=== PATIENT | female | born 1975 | race Caucasian/White ===

== ENCOUNTER 2023-08-06 15:02 | Emergency (ER) | payer OTHER, SELFPAY ==
[2023-08-06 15:06] VITALS: BP 160/90; PULSE 104; RESP 20; TEMP 36.6; O2SAT 98
[2023-08-06 15:29] LABS: Basophils # 0.1 10^3/uL (0.0-0.1); Basophils % 0.7 %; Eosinophils # 0.5 10^3/uL (0.0-0.8); Eosinophils % 4.5 %; Hematocrit 45.3 % (36-47); Lymphocytes # 1.5 10^3/uL (0.8-4.8); Lymphocytes % 14.3 %; Mean Corpuscular HGB Conc 32.5 g/dL (30-55); Mean Corpuscular Hemoglobin 27.8 pg (27-33); Mean Corpuscular Volume 85.6 fl (85-98); Mean Platelet Volume 8.4 fL (7.4-10.4); Monocytes # 0.5 10^3/uL (0.2-0.9); Monocytes % 4.8 %; Neutrophils # 8.09 10^3/uL (1.8-7.7); Neutrophils % 75.4 %; Nucleated Red Blood Cells % 0 %; Platelet Count 380 10^3/cmm (157-399); Red Blood Count 5.29 10^6/uL (3.85-5.65); Red Cell Distribution Width 13.7 % (12.1-15.1); White Blood Count 10.71 10^3/uL (3.29-11.43)
[2023-08-06 15:56] LABS: HCG, Serum Qual Negative (Negative)
[2023-08-06 16:00] LABS: Alanine Aminotransferase 12 U/L (0-33); Albumin Level 4.1 g/dL (3.5-5.2); Alkaline Phosphatase 88 U/L (35-105); Chloride 104 mmol/L (98-107); Potassium 4.4 mmol/L (3.5-5.1); Sodium 137 mmol/L (136-145)
[2023-08-06 16:07] LABS: Anion Gap 17.4 (5-19); Aspartate Amino Transferase 16 U/L (0-32); Blood Urea Nitrogen 17 mg/dL (6-20); Calcium 8.8 mg/dL (8.5-10.5); Carbon Dioxide 20 mmol/L (22-29); Globulin 3.8 g/dL (1.3-4.6); Glomerular Filtration Rate 48.4 mL/min (90-130); Glucose 85 mg/dL (65-115); Lipase 62 U/L (13-60); Osmolality Calculated 285 mOsm/kg (285-295); Total Bilirubin 0.2 mg/dL (0.15-1.2); Total Protein 7.9 g/dL (6.6-8.7)
[2023-08-06 16:08] LABS: Creatinine Clr Calc Pharmacy 55.3156
--- NOTE | 2023-08-06 16:35 | USR_ITS ---
PROCEDURE INFORMATION: Exam: US Abdomen, Limited; Right Upper Quadrant Exam date and time: 08/06/2023 4:30 PM Age: 48 years old Clinical indication: Abdominal pain; Generalized; Additional info: Ruq pain TECHNIQUE: Imaging protocol: Real time ultrasound of the abdomen with image documentation. Limited exam focused on the right upper quadrant. COMPARISON: No relevant prior studies available. FINDINGS: Liver: Normal. No masses. Gallbladder: Normal. No gallstones. There is no gallbladder wall thickening. Burden's sign reported negative. Biliary ducts: Normal. No stones. No dilation. Pancreas: Visualized pancreas is unremarkable. Right kidney: Normal. No mass. No hydronephrosis. US/US gall bladder [id number] IMPRESSION: No abnormal findings.
--- NOTE | 2023-08-06 16:37 | ED_ITS ---
Documented by User: MARYJANE Hook 08/06/23 18:12 HPI - Abdominal Pain 2 General: Chief Complaint: Abdominal Pain Stated Complaint: sent over by savannah tate pain Time Seen by Provider: 08/06/23 15:46 Source: patient Mode of arrival: ambulatory Limitations: no limitations History of Present Illness: Patient is a 48-year-old female with no significant past medical history who presents to the emergency department complaining of right upper quadrant abdominal pain onset 2 days. Patient states the pain started out of nowhere and is constantly gotten worse since onset. It is a sharp stabbing pain with no radiation or migration. She still has her gallbladder and appendix, denies any history of abdominal surgeries. She denies any changes in bowel habit. Her last bowel movement was yesterday and was normal. She denies any nausea vomiting, fever, blood in stool, diarrhea, or any other symptoms. She states that the pain is worse with movement and with taking a deep breath. The pain causes her to feel uncomfortable at all times, and she says nothing she has tried [id number] has worked. She has never had this pain before. Patient states that she took a hydrocodone for recent dental infection, and this also did not relieve her pain. MD elicited complaint: abdominal pain Pertinent past history: none Onset (ago): day(s) (2) Pain Consistency: constant Location: RUQ Severity: severe Quality: stabbing and sharp Radiation: none Migration to: no migration Exacerbating factors: movement and other (Deep breathing) Relieving factors: nothing Associated Symptoms: Reports no associated symptoms; Denies change in bowel habits, chills, constipation, diarrhea, dysuria, fever(s), hematochezia, hematemesis, melena, nausea and vomiting Related Data: Date of Last Menstrual Period: 08/06/23 Review of Systems 2 General: Reports: 10 or more systems reviewed and unremarkable except in HPI and below Const: Denies: fever(s), chills or fatigue Eyes: Denies: change in vision ENMT: Denies: throat pain, ear or mastoid pain or nasal discharge Card: Denies: chest pain, palpitations, swelling of feet/ankles or lightheadedness Resp: Denies: dyspnea, productive cough or wheezing GI: Reports: abdominal pain; Denies: nausea, vomiting, hematemesis, diarrhea, constipation, change in bowel habits, hematochezia or melena : Denies: flank pain, difficulty voiding, dysuria or urinary frequency Musc: Denies: neck pain, back pain or joint pain Skin/Breast: Denies: rash Neuro: Denies: headache(s), numbness in extremities or weakness in extremities [facility] ED 2 Female Reproductive History: Date of last menstrual period: 08/06/23 Physical Exam 2 Const: COMMON NORMALS: no acute distress, average body habitus, patient oriented x3, no limitations, healthy appearing, alert and well nourished G ENERAL APPEARANCE: cooperative and comfortable ORIENTATION/CONSCIOUSNESS: Yes awake HENMT: COMMON NORMALS: normocephalic, atraumatic, hearing grossly normal bilaterally, external ears normal, Normal external nose present, Normal nasal mucous membranes and turbinates present and moist oral mucous membranes HEAD & SCALP: normocephalic and atraumatic NOSE: Normal external nose present and Normal nasal mucous membranes and turbinates present EXTERNAL EAR: Yes external ears normal Eye: COMMON NORMALS: Equal, round and reactive pupils present, EOMs intact bilaterally, conjunctivae normal and normal visual rosales by confrontation C ONJUNCTIVA: Yes conjunctivae normal PUPIL: Yes Equal, round and reactive pupils present Neck/C-Spine: COMMON NORMALS: full ROM, supple, no meningeal signs and no JVD Resp: COMMON NORMALS: normal respiratory effort, No retractions, No use of accessory muscles and clear to auscultation bilaterally AUSCULTATION: clear to auscultation bilaterally, no crackles, no rales, no rhonchi and no wheezes Cardio: COMMON NORMALS: no JVD, regular rate, regular rhythm, S1 normal heart sound present, S2 normal heart sound present, No gallops present (Cardio), No clicks present (Cardio), No murmurs present (Cardio), No rub (Cardio) and Peripheral pulses 2+ throughout RATE: regular rate RHYTHM: regular rhythm HEART SOUNDS: S1 normal heart sound present and S2 normal heart sound present PERIPHERAL PULSES: Peripheral pulses 2+ throughout GI: COMMON NORMALS: Normal to inspection, nondistended, normoactive bowel sounds present, No hepatosplenomegaly present, no masses and no bruits I NSPECTION: Yes normal to inspection, No abdominal wall ecchymosis and No visible herniation AUSCULTATION: Yes normoactive bowel sounds PALPATION: Yes Tenderness to palpation present (GI) Details: RUQ (Moderate with TTP, negative Burden sign), Yes Guarding due to palpation present (GI) in the RUQ (Voluntary), No Rigid due to palpation and Yes No hepatosplenomegaly present RECTAL EXAM: deferred : COMMON NORMALS: Yes no CVA tenderness BLADDER/KIDNEY EXAM: Yes no CVA tenderness Back/Pelvis: COMMON NORMALS: no CVA tenderness Extremity: COMMON NORMALS: normal to inspection and full ROM Neuro: COMMON NORMALS: patient oriented x3, moves all extremities, no focal motor deficits and no sensory deficits noted SENSORIUM/ORIENTATION: Yes alert MENINGEAL SIGNS: Yes no meningeal signs Psych: COMMON NORMALS: mental status grossly normal, cooperative and speech normal SPEECH: Yes normal speech Skin: COMMON NORMALS: no rashes or lesions noted GENERAL SKIN EXAM: no rashes or lesions noted Course 2 Vital Signs: Vital signs: Vital Signs Temperature 98 F 08/06/23 15:06 Pulse Rate 104 H 08/06/23 15:06 Respiratory Rate 20 H 08/06/23 15:06 Blood Pressure 160/90 08/06/23 15:06 Pulse Oximetry 98 08/06/23 15:06 Oxygen Delivery Me thod Room Air 08/06/23 15:06 MDM - Abdominal Pain Medical Decision Making This patient is a 48-year-old female who was seen and evaluated in the emergency department today for 2 days of right upper quadrant pain. She denies any history of abdominal surgeries and still has her gallbladder and appendix. On examination, she exhibits moderate tenderness to palpation of the right upper quadrant with associated voluntary guarding. Otherwise rest of her exam was unremarkable. Her vitals have been unremarkable throughout her ED course. Laboratory examination overall is unremarkable including a negative white count or other signs of acute infection. Gallbladder ultrasound obtained failed to reveal any signs of cholelithiasis or cholecystitis. Patient will be given follow-up with general surgery for further evaluation. She will be treated with a prescription for dicyclomine for her pain, and Zofran for her nausea. The patient agrees with this plan. Patient discharged home. Lab Data 08/06/23 15:22 08/06/23 15:22 Labs/Radiology: Radiology Impressions Gallbladder Ultrasound 08/06/23 16:35 IMPRESSION: No abnormal findings. Laboratory Results WBC 10.71 10^3/uL (3.29-11.43) 08/06/23 15:22 RBC 5.29 10^6/uL (3.85-5.65) 08/06/23 15:22 Hgb 14.70 g/dL (11.27-16.99) 08/06/23 15:22 Hct 45.3 % (36-47) 08/06/23 15:22 MCV 85.6 fl (85-98) 08/06/23 15:22 MCH 27.8 pg (27-33) 08/06/23 15:22 MCHC 32.5 g/dL (30-55) 08/06/23 15:22 RDW 13.7 % (12.1-15.1) 08/06/23 15:22 Plt Count 380 10^3/cmm (157-399) 08/06/23 15:22 MPV 8.4 fL (7.4-10.4) 08/06/23 15:22 Neut % (Auto) 75.4 % 08/06/23 15:22 Lymph % (Auto) 14.3 % 08/06/23 15:22 [place] % (Auto) 4.8 % 08/06/23 15:22 Eos % (Auto) 4.5 % 08/06/23 15:22 Baso % (Auto) 0.7 % 08/06/23 15: Neut # (Auto) 8.09 10^3/uL (1.8-7.7) H 08/06/23 15:22 Lymph # (Auto) 1.5 10^3/uL (0.8-4.8) 08/06/23 15:22 [place] # (Auto) 0.5 10^3/uL (0.2-0.9) 08/06/23 15:22 Eos # (Auto) 0.5 10^3/uL (0.0-0.8) 08/06/23 15:22 Baso # (Auto) 0.1 10^3/uL (0.0-0.1) 08/06/23 15:22 Nucleated RBC % (auto) 0 % 08/06/23 15:22 Nucleated RBCs # 0.0 /100WBC 08/06/23 15:22 Sodium 137 mmol/L (136-145) 08/06/23 15:22 Potassium 4.4 mmol/L (3.5-5.1) 08/06/23 15:22 Chloride 104 mmol/L (98-107) 08/06/23 15:22 Carbon Dioxide 20 mmol/L (22-29) L 08/06/23 15:22 Anion Gap 17.4 (5-19) 08/06/23 15:22 BUN 17 mg/dL (6-20) 08/06/23 15:22 Creatinine 1.2 mg/dL (0.5-0.9) H 08/06/23 15:22 GFR Calculation 48.4 mL/min (90-130) L 08/06/23 15:22 Glucose 85 mg/dL (65-115) 08/06/23 15:22 Calculated Osmolality 285 mOsm/kg (285-295) 08/06/23 15:22 Calcium 8.8 mg/dL (8.5-10.5) 08/06/23 15:22 Total Bilirubin 0.2 mg/dL (0.15-1.2) 08/06/23 15:22 AST 16 U/L (0-32) 08/06/23 15:22 ALT 12 U/L (0-33) 08/06/23 15:22 Alkaline Phosphatase 88 U/L (35-105) 08/06/23 15:22 Total Protein 7.9 g/dL (6.6-8.7) 08/06/23 15:22 Albumin 4.1 g/dL (3.5-5.2) 08/06/23 15:22 Globulin 3.8 g/dL (1.3-4.6) 08/06/23 15:22 Lipase 62 U/L (13-60) H 08/06/23 15:22 HCG, Qual Negative (Negative) 08/06/23 15:22 Urine Color Yellow (Yellow) 08/06/23 17:36 Urine Appearance Hazy (CLEAR) A 08/06/23 17:36 Urine pH 5 (5-7) 08/06/23 17:36 Ur Specific [place] 1.020 (1.005-1.030) 08/06/23 17:36 Urine Protein 2+ (Negative) H 08/06/23 17:36 Urine Glucose (UA) Norm (Normal) 08/06/23 17:36 Urine Ketones Negative (Negative) 08/06/23 17:36 Urine Blood 3+ (Negative) H 08/06/23 17:36 Urine Nitrate Negative (Negative) 08/06/23 17:36 Urine Bilirubin Neg (Negative) 08/06/23 17:36 Urine Urobilinogen Norm mg/dL (Negative) 08/06/23 17:36 Ur Leukocyte Esterase Negative (Negative) 08/06/23 17:36 Urine RBC 25-40 /hpf (0-2) H 08/06/23 17:36 Urine WBC None /hpf (0-5) 08/06/23 17:36 Ur Squamous Epith Cells 0-4 /hpf (0-5) H 08/06/23 17:36 Amorphous Sediment Not Reportable 08/06/23 17:36 Urine Bacteria Trace /hpf (NONE) 08/06/23 17:36 All radiology interpretation(s) finalized by discharge Discharge Plan Discharge Patient Disposition: Home Clinical Impression: Right upper quadrant abdominal pain Condition: Stable Prescriptions: New dicyclomine 10 mg capsule 10 mg PO QID PRN (Reason: abdominal pain) Qty: 30 0RF ondansetron HCl 4 mg tablet 4 mg PO Q8H Qty: 30 0RF Discharge Orders: Discharge ED (Routine); Ordered 08/06/23 Ordered By: Sameer Edwards Discharge Diet: Usual diet Discharge Activity: Increase activity as tolerated Patient Instructions: Abdominal Pain (ED) Activity Restrictions/Additional Instructions: Dicyclomine as prescribed. Zofran as needed. Follow-up with general surgery as instructed. Return if you develop any new or worsening symptoms. Coding Level of Care Code ED Product Representative for Chg Fwd Documented by User: Reilly Hull DO 08/07/23 06:10 HPI - Abdominal Pain 2 General: Chief Complaint: Abdominal Pain Stated Complaint: sent over by savannah tate pain Time Seen by Provider: 08/06/23 15:46 Course 2 Vital Signs: Vital signs: Vital Signs Temperature 98 F 08/06/23 15:06 Pulse Rate 104 H 08/06/23 15:06 Respiratory Rate 20 H 08/06/23 15:06 Blood Pressure 160/90 08/06/23 15:06 Pulse Oximetry 98 08/06/23 15:06 Oxygen Delivery Me thod Room Air 08/06/23 15:06 MDM - Abdominal Pain Medical Decision Making This patient is a 48-year-old female who was seen and evaluated in the emergency department today for 2 days of right upper quadrant pain. She denies any history of abdominal surgeries and still has her gallbladder and appendix. On examination, she exhibits moderate tenderness to palpation of the right upper quadrant with associated voluntary guarding. Otherwise rest of her exam was unremarkable. Her vitals have been unremarkable throughout her ED course. Laboratory examination overall is unremarkable including a negative white count or other signs of acute infection. Gallbladder ultrasound obtained failed to reveal any signs of cholelithiasis or cholecystitis. Patient will be given follow-up with general surgery for further evaluation. She will be treated with a prescription for dicyclomine for her pain, and Zofran for her nausea. The patient agrees with this plan. Patient discharged home. Chart reviewed and patient discussed with midlevel. Agree with assessment and plan. Lab Data 08/06/23 15:22 08/06/23 15:22 Labs/Radiology: Radiology Impressions Gallbladder Ultrasound 08/06/23 16:35 IMPRESSION: No abnormal findings. Laboratory Results WBC 10.71 10^3/uL (3.29-11.43) 08/06/23 15:22 RBC 5.29 10^6/uL (3.85-5.65) 08/06/23 15:22 Hgb 14.70 g/dL (11.27-16.99) 08/06/23 15:22 Hct 45.3 % (36-47) 08/06/23 15:22 MCV 85.6 fl (85-98) 08/06/23 15:22 MCH 27.8 pg (27-33) 08/06/23 15:22 MCHC 32.5 g/dL (30-55) 08/06/23 15:22 RDW 13.7 % (12.1-15.1) 08/06/23 15:22 Plt Count 380 10^3/cmm (157-399) 08/06/23 15:22 MPV 8.4 fL (7.4-10.4) 08/06/23 15:22 Neut % (Auto) 75.4 % 08/06/23 15:22 Lymph % (Auto) 14.3 % 08/06/23 15:22 [place] % (Auto) 4.8 % 08/06/23 15:22 Eos % (Auto) 4.5 % 08/06/23 15:22 Baso % (Auto) 0.7 % 08/06/23 15:22 Neut # (Auto) 8.09 10^3/uL (1.8-7.7) H 08/06/23 15:22 Lymph # (Auto) 1.5 10^3/uL (0.8-4.8) 08/06/23 15:22 [place] # (Auto) 0.5 10^3/uL (0.2-0.9) 08/06/23 15:22 Eos # (Auto) 0.5 10^3/uL (0.0-0.8) 08/06/23 15:22 Baso # (Auto) 0.1 10^3/uL (0.0-0.1) 08/06/23 15:22 Nucleated RBC % (auto) 0 % 08/06/23 15: Nucleated RBCs # 0.0 /100WBC 08/06/23 15:22 Sodium 137 mmol/L (136-145) 08/06/23 15:22 Potassium 4.4 mmol/L (3.5-5.1) 08/06/23 15:22 Chloride 104 mmol/L (98-107) 08/06/23 15:22 Carbon Dioxide 20 mmol/L (22-29) L 08/06/23 15:22 Anion Gap 17.4 (5-19) 08/06/23 15:22 BUN 17 mg/dL (6-20) 08/06/23 15:22 Creatinine 1.2 mg/dL (0.5-0.9) H 08/06/23 15:22 GFR Calculation 48.4 mL/min (90-130) L 08/06/23 15:22 Glucose 85 mg/dL (65-115) 08/06/23 15:22 Calculated Osmolality 285 mOsm/kg (285-295) 08/06/23 15:22 Calcium 8.8 mg/dL (8.5-10.5) 08/06/23 15:22 Total Bilirubin 0.2 mg/dL (0.15-1.2) 08/06/23 15:22 AST 16 U/L (0-32) 08/06/23 15:22 ALT 12 U/L (0-33) 08/06/23 15:22 Alkaline Phosphatase 88 U/L (35-105) 08/06/23 15:22 Total Protein 7.9 g/dL (6.6-8.7) 08/06/23 15:22 Albumin 4.1 g/dL (3.5-5.2) 08/06/23 15:22 Globulin 3.8 g/dL (1.3-4.6) 08/06/23 15:22 Lipase 62 U/L (13-60) H 08/06/23 15:22 HCG, Qual Negative (Negative) 08/06/23 15:22 Urine Color Yellow (Yellow) 08/06/23 17:36 Urine Appearance Hazy (CLEAR) A 08/06/23 17:36 Urine pH 5 (5-7) 08/06/23 17:36 Ur Specific [place] 1.020 (1.005-1.030) 08/06/23 17:36 Urine Protein 2+ (Negative) H 08/06/23 17:36 Urine Glucose (UA) Norm (Normal) 08/06/23 17:36 Urine Ketones Negative (Negative) 08/06/23 17:36 Urine Blood 3+ (Negative) H 08/06/23 17:36 Urine Nitrate Negative (Negative) 08/06/23 17:36 Urine Bilirubin Neg (Negative) 08/06/23 17:36 Urine Urobilinogen Norm mg/dL (Negative) 08/06/23 17:36 Ur Leukocyte Esterase Negative (Negative) 08/06/23 17:36 Urine RBC 25-40 /hpf (0-2) H 08/06/23 17:36 Urine WBC None /hpf (0-5) 08/06/23 17:36 Ur Squamous Epith Cells 0-4 /hpf (0-5) H 08/06/23 17:36 Amorphous Sediment Not Reportable 08/06/23 17:36 Urine Bacteria Trace /hpf (NONE) 08/06/23 17:36 Discharge Plan Discharge Patient Disposition: Home Clinical Impression: Right upper quadrant abdominal pain Condition: Stable Prescriptions: New dicyclomine 10 mg capsule 10 mg PO QID PRN (Reason: abdominal pain) Qty: 30 0RF ondansetron HCl 4 mg tablet 4 mg PO Q8H Qty: 30 0RF Discharge Orders: Discharge ED (Routine); Ordered 08/06/23 Ordered By: Sameer Edwards Discharge Diet: Usual diet Discharge Activity: Increase activity as tolerated Patient Instructions: Abdominal Pain (ED) Activity Restrictions/Additional Instructions: Dicyclomine as prescribed. Zofran as needed. Follow-up with general surgery as instructed. Return if you develop any new or worsening symptoms. Coding Level of Care Code ED Product Representative for VictorH ugo Wright
[2023-08-06] MEDS: ketorolac 30 mg/mL INJ 15 MG IVP (18:20)
[2023-08-06 19:36] LABS: Add Urine Microscopic? YES; Bacteria Urine TRACE /hpf; Bilirubin Urine Neg (Negative); Blood Urine 3+ (Negative); Glucose Urine UA Norm (Normal); Ketones Urine Negative (Negative); Leukocyte Esterase Urine Negative (Negative); Nitrate Urine Negative (Negative); Protein Urine 2+ (Negative); RBC Urine 25-40 /hpf (0-2); Squamous Epithelial Cell Urine 0-4 /hpf (0-5); Urine Appearance Hazy (CLEAR); Urine Color Yellow (Yellow); Urobilinogen Urine Norm (Negative); pH Urine 5 (5-7)
[2023-08-06 19:37] LABS: Add Urine Culture? Yes
--- NOTE | 2023-08-07 12:10 | DCPLANNER ---
Message was sent to general surgery on 08/07/23 at 1210. Clinic to contact patient
== END 2023-08-06 18:28 | disposition home or self-care (01) ==
PROVIDERS: Emergency Medicine; Emergency Provider Physician Assistant
DX: R10.11 Right upper quadrant pain (principal)
CPT/HCPCS: 36415; 76705; 80053; 81001; 83690; 84703; 85025; 87086; 96374; 99284; J1885

== ENCOUNTER 2024-11-17 08:22 | Outpatient (CLI) | payer SELFPAY ==
[2024-11-17 13:58] LABS: Thyroid Stimulating Hormone 1.52 uIU/mL (0.27-4.20)
== END 2024-11-17 08:23 | disposition home or self-care (01) ==
PROVIDERS: Visit Provider Dermatology
DX: Z01.89 Encounter for other specified special examinations (principal)

== ENCOUNTER 2025-01-20 14:56 | Outpatient (CLI) | payer OTHER, SELFPAY ==
--- NOTE | 2025-01-20 15:20 | MM_ITS ---
WS: [id number] BILATERAL 3D TOMOSYNTHESIS DIGITAL SCREENING MAMMOGRAPHY WITH CAD CLINICAL INFORMATION: screening HISTORY: Screening mammogram. No current complaints. COMPARISON: 2014 TECHNIQUE: Bilateral CC and MLO views. FINDINGS: The breasts are composed of heterogeneous fibroglandular density tissue, which can limit the detection of small underlying mass lesions. No suspicious mass, asymmetry, calcifications, or architectural distortion. No evidence of malignancy. MM/MM scr tomosynthesis [id number] IMPRESSION: DENSITY: The breasts are heterogeneously dense, which may obscure small masses. BI-RADS: 1 - Negative FOLLOW UP: 1 Year Follow-up Recommend return to annual screening mammography.
== END 2025-01-20 14:57 | disposition home or self-care (01) ==
PROVIDERS: PCP Family Medicine; Visit Provider Family Medicine
DX: Z12.31 Encounter for screening mammogram for malignant neoplasm of breast (principal); R92.333 Mammographic heterogeneous density, bilateral breasts; R92.323 Mammographic fibroglandular density, bilateral breasts
CPT/HCPCS: 77063; 77067

== ENCOUNTER 2025-02-08 14:24 | Emergency (ER) | payer OTHER, SELFPAY ==
[2025-02-08 14:31] VITALS: BP 118/73; PULSE 89; RESP 16; TEMP 36.9; O2SAT 96
--- OUTSIDE RECORDS SUMMARY | 2025-02-08 14:32 | XMS_ITS | Clinical Summary ---
Author Organization [employer], [facility] Address [address] [place] [address] Phone Care Team Providers Care Radial Router Operator Name Role Phone EzequielVangie EDUARDO Primary Care Provider [phone] Allergies Active Allergy Reactions Criticality Noted Date Comments Phenytoin 06/30/2019 Penicillins 06/30/2019 Medications * This document contains information received from the source organization and may not represent a complete record from that organization. acetaminophen (TYLENOL) 500 MG tablet Take by mouth every 6 (six) hours if needed for mild pain Active diphenhydrAMINE (BENADRYL) 25 MG tablet Take 25 mg by mouth every 6 (six) hours if needed Active Active Problems Problem Noted Date Diagnosed Date Proteinuria 07/06/2019 Family History Medical History Relation Comments Heart disease Father Relation Status Comments Father Social History Tobacco Use Types Packs/Day Years Used Date Smoking Tobacco: Never Smokeless Tobacco: Never Alcohol Use Standard Drinks/Week Comments Never 0 (1 standard drink = 0.6 oz pur e alcohol) AUDIT-C Answer Date Recorded Q1: How often do you have a drink containing alc ohol? Never 07/06/2019 Average Number of Drinks Not on file 020 Frequency of Binge Drinking Not on file 06/09 Comments Unknown Sex and Gender Information Value Date Recorded Sex Assigned at Not on file Legal Sex Female 1:22 PM EST Gender Identity Not on file Sexual Orientation Not on file Last Filed Vital Signs Vital Sign Reading Time Taken Comments Blood Pressure 118/80 07/06/2019 11:06 AM DITCHING MACHINE ENGINEER Pulse 76 07/06/2019 11:06 AM DITCHING MACHINE ENGINEER Temperature - - Respiratory Rate - - Oxygen Saturation - - Inhaled Oxygen Concentration - - Weight 69.8 kg (153 lb 14.4 oz) 020 11:06 AM DITCHING MACHINE ENGINEER Height 157.5 cm (5' 2 ) 07/06/2019 11:0 6 AM DITCHING MACHINE ENGINEER Body Mass Index 28.15 07/06/2019 11:06 AM DITCHING MACHINE ENGINEER Plan of Treatment Health Maintenance Due Date Last Done Comments Hepatitis B Vaccine (1 of 3 - 19+ 3-dose series) 1996 Influenza Vaccine (#1) 2025 Pneumococcal Vaccine: Peds ( 0 to 5 Years) and At-Risk Patients (6 to 49 Years) Aged Out No longer eligible b ased on patient's age to complete this topic Insurance [employer] [place] ([id number]) MARYJANE ARNDT [id number] Care Teams Radial Router Operator Relationship Specialty Start Date End Date Vangie Nieves NP [address] [place] [address] PCP - General 09/29/19
--- OUTSIDE RECORDS SUMMARY | 2025-02-08 14:32 | XMS_ITS | Encounter Summary ---
Author Organization [facility] Address [address] [place] [address] Care Team Providers Care Fishing Instructor Name Role Phone Unavailable Primary Care Provider Unavailabl e Encounter Details Date Type Department Care Team (Late st Contact Info) Description 04/04/2003 Emergency [facility] Emergency Department [address] [place] [address] Hui Choudhary MD [address] [place] [address] CONTUSION FACE/SCALP/NCK (Primary Dx) Social History Tobacco Use Types Packs/Day Years Used Date Smoking Tobacco: Never Assessed Comments Unknown Sex and Gender Information Value Date Recorded Sex Assigned at Not on file Legal Sex Female 4:26 AM PULMONARY SPECIALIST Gender Identity Not on file Sexual Orientation Not on file documented as of this encounter Plan of Treatment Not on file documented as of this encounter Visit Diagnoses Diagnosis Contusion of face, scalp, and neck except eye(s)- Primary documented in this encounter
--- OUTSIDE RECORDS SUMMARY | 2025-02-08 14:32 | XMS_ITS | Clinical Summary ---
Author Organization [facility] Address [address] [place]: Epic Prelude ADT [place] [address] Care Team Providers Care Sr. Manager Name Role Phone Unavailable Primary Care Provider Unavailabl e Social History Tobacco Use Types Packs/Day Years Used Date Smoking Tobacco: Never Assessed Comments Unknown Sex and Gender Information Value Date Recorded Sex Assigned at Not on file Legal Sex Female 4:26 AM CHILD ADVOCATE Gender Identity Not on file Sexual Orientation Not on file Plan of Treatment Health Maintenance Due Date Last Done Comments DTAP/TDAP/TD VACCINES (1 - Tdap) 1996 HEPATITIS B VACCINES (1 of 3 - 19+ 3-dose series) 04/08 HPV/Cotest (21-29) 1998 CERVICAL CANCER SCREENING 2007 HPV/Cotest (30-65) 2007 PAP SMEAR 2007 BREAST CANCER SCREENING 2017 COLORECTAL SCREENING 2022 Colorectal Cancer Screening 2022 FIT-DNA Q 3 years 2022 FIT/FOBT Q 1 year 2022 Flex Sig/CT Colonography Q 5 years 2022 INFLUENZA VACCINE (#1) 2025
--- OUTSIDE RECORDS SUMMARY | 2025-02-08 14:32 | XMS_ITS | Encounter Summary ---
Author Organization [facility] Address [address] [place] [address] Phone Care Team Providers Care Marketing Sales Consultant Name Role Phone Vangie Nieves NP Primary Care Provider [phone] Encounter Details Date Type Department Care Team (Late st Contact Info) Description 2019 Orders Only [facility] [address] [place] [address] Proteinuria, not otherwise specified Social History Tobacco Use Types Packs/Day Years Used Date Smoking Tobacco: Never Assessed Comments Unknown Sex and Gender Information Value Date Recorded Sex Assigned at Not on file Legal Sex Female 1:22 PM EST Gender Identity Not on file Sexual Orientation Not on file documented as of this encounter Plan of Treatment Not on file documented as of this encounter Visit Diagnoses Diagnosis Proteinuria, not otherwise specified documented in this encounter Care Teams Marketing Sales Consultant Relationship Specialty Start Date End Date Vangie Nieves NP [address] [place] [address] PCP - General 09/29/19 documented as of this encounter
--- NOTE | 2025-02-08 14:46 | W.ED.SKABFB ---
HPI - Skin/Abscess/Foreign Bdy General: Chief complaint: Skin/Abscess/Foreign Body Stated complaint: spider bite rleg Time Seen by Provider: 02/08/25 14:25 Source: patient Mode of arrival: ambulatory Limitations: no limitations History of Present Illness: Patient is a 49-year-old female presents to ED today for medical re-evaluation and concern to a possible spider bite to her right lower leg. She states she initially noticed bite almost 13 days ago. She states she never visualized a spider biting her. She states she had a localized area and a small central hole that had carved out. She was subsequently seen at a walk-in clinic and placed on Bactrim and mupirocin. She states she has a few days left of this medication. Patient states that she is concerned as area does not seem to be improving. She has noticed scant amounts of drainage when she wears a Band-Aid. No systemic symptoms. MD complaint: insect bite/sting Onset (ago): day(s) Tetanus up to date: yes Location: RLE Severity: mild Quality: burning Pain Consistency: constant Relieving factors: none Exacerbating factors: none Context: none Associated symptoms: Reports no associated symptoms; Deny chills or fever(s) Treatments prior to arrival: antibiotic Related Data Previous Rx's ?Medication ?Instructions ?Recorded diclofenac sodium 1 % topical gel 2 g topical QID #100 grams 01/16/25 (Voltaren Arthritis Pain) mupirocin 2 % topical ointment 1 applic topical BID 7 days #22 02/03/25 (Centany) grams sulfamethoxazole 800 1 tab PO BID 7 days #14 tabs 02/03/25 mg-trimethoprim 160 mg tablet (Bactrim DS) Allergies Allergy/AdvReac Type Severity Reaction Status Date / Time phenytoin (From Dilantin) Allergy Severe ADR-Seizure Verified 02/03/25 11:25 Penicillins Allergy seizures Verified 02/03/25 11:25 Review of Systems Const: Denies: fever(s), chills, body aches, fatigue or malaise Musc: Reports: extremity pain; Denies: extremity swelling, joint pain, joint swelling or joint redness Skin/Breast: Reports: other (possible R LE spider bite) Neuro: Denies: numbness in extremities, weakness in extremities, sensory changes or difficulty walking [facility] ED PFSH: Social History Smoking and tobacco/nicotine status: never used tobacco/nicotine Physical Exam Const: COMMON NORMALS: no acute distress, average body habitus, patient oriented x3, no limitations, healthy appearing, alert and well nourished Extremity: RIGHT LOWER EXTREMITY: Yes lower leg EXTREMITY IMAGE (FRONT):  1. 3-4cm area of induration to medial R LE with scant surrounding erythema; no overlying warmth or streaking; no fluctuance or drainage; small (4mm) central area of hemorrhage/skin breakdown; no odor Neuro: COMMON NORMALS: patient oriented x3, moves all extremities, no focal motor deficits and no sensory deficits noted SENSORIUM/ORIENTATION: Yes alert Skin: NARRATIVE SKIN EXAM: see above Course Vital Signs: Vital signs: Vital Signs Temperature 98.5 F 02/08/25 14:31 Pulse Rate 89 02/08/25 14:31 Respiratory Rate 16 02/08/25 14:31 Blood Pressure 118/73 02/08/25 14:31 Pulse Oximetry 96 02/08/25 14:31 Oxygen Delivery Me thod Room Air 02/08/25 14:31 MDM - Skin/Abscess/Foreign Bdy Medicial Decision Making Discussed how at this time, lesion seems consistent with a brown recluse bite. Discussed how the Bactrim/mupirocin will only prevent secondary infection and will not cure her lesion-only time will do this. Discussed continued conservative therapy and close observation. Discussed how rarely these bites can require debridement. Discussed how there is not any therapies that can reverse the localized effects/damage of the spider venom. Discussed how most of these bites heal without intervention but that it can take weeks for complete resolution. Medical Records I reviewed the patient's medical records. No radiology studies performed this visit Discharge Plan Discharge Patient Disposition: Home Clinical Impression: Accidental spider bite Condition: Stable Prescriptions: No Action diclofenac sodium [Voltaren Arthritis Pain] 1 % gel 2 g topical QID Qty: 100 0RF Rx Instructions: apply to single elbow, wrist or hand; for hand includes palm/fingers/back of hand sulfamethoxazole-trimethoprim [Bactrim DS] 800-160 mg tablet 1 tab PO BID 7 Days Qty: 14 0RF mupirocin [Centany] 2 % ointment 1 applic topical BID 7 Days Qty: 22 0RF Discharge Orders: Discharge ED (Routine); Ordered 02/08/25 Ordered By: Supriya Oshea Referrals: Deanne So MD [Primary Care Provider, [facility]] Patient Instructions: Brown Recluse Spider Bite, Brown Recluse Spider Bite (ED), Patient Portal & Thom Instructions Activity Restrictions/Additional Instructions: As we discussed, continue to keep wound clean with warm soap and water. Monitor for progression of symptoms. As we discussed, the Bactrim only will prevent secondary bacterial infections and will not do anything for the bite itself/venom reaction. Most brown recluse bites will become red, swollen, hard, and hurt/burn but will eventually heal without intervention. We discussed how rarely some of these can become necrotic and require debridement-again this is rare. You may follow-up with primary care later this week/early next week for reevaluation. Print Language: Wolof Coding Level of Care Code ED [employer] for [employer]
== END 2025-02-08 15:21 | disposition home or self-care (01) ==
PROVIDERS: Emergency Provider Physician Assistant; PCP Family Medicine
DX: T63.331A Toxic effect of venom of brown recluse spider, accidental (unintentional), initial encounter (principal); X58.XXXA Exposure to other specified factors, initial encounter
CPT/HCPCS: 99282

== ENCOUNTER 2025-03-15 15:03 | Outpatient (CLI) | payer OTHER, SELFPAY ==
--- NOTE | 2025-03-15 15:30 | USCV_ITS ---
Hailey Cisneros Age: 49 Gender: F : 1975 Exam Date: 03/15/2025 15:22 Ordering Phys: Deanne So MD Technologist: FRITZ Exam Location: [facility] [place] Indication: right leg swelling HISTORY: Lower extremity swelling-right PROCEDURES: Venous duplex imaging was performed in only the right lower extremity. The following venous structures were evaluated: common femoral vein, profunda vein, proximal portion of the greater saphenous vein, superficial femoral vein, and the popliteal vein. In addition, the posterior tibial and peroneal trunk were evaluated. FINDINGS: Normal 2-D Doppler and augmentation and compressibility throughout the lower extremity venous structures. Additional imaging through the proximal calf veins also reveals no thrombus. Limited evaluation of the greater saphenous vein is patent with no thrombus. CONCLUSIONS No evidence of right lower extremity DVT. Prominent 2cm lymph node with normal fatty hilum in groin Hero Ortega MD (Electronically Signed) Final Date: 15 March 2025 16:11 S
== END 2025-03-15 15:04 | disposition home or self-care (01) ==
LOC: RAD 15:04
PROVIDERS: PCP Family Medicine; Visit Provider Family Medicine
DX: I82.451 Acute embolism and thrombosis of right peroneal vein (principal)
CPT/HCPCS: 93971